=== PATIENT | male | born 1950 | race Caucasian/White ===

== ENCOUNTER 2018-12-03 13:38 | Inpatient (IN) ==
[2018-12-03] MEDS ORDERED: Lidocaine -MPF 2% 2 ML VIAL ONE (13:43)
[2018-12-03] MEDS ORDERED: *HR* Propofol 200 MG/20 ML VIAL IVP ONE (13:43)
[2018-12-03] MEDS ORDERED: *HR* Midazolam HCl 2 MG/2 ML VIAL ONE (13:44)
[2018-12-03] MEDS ORDERED: Tranexamic Acid 1,000 MG/10 ML VIAL ONE (13:44)
[2018-12-03] MEDS ORDERED: *HR* FentaNYL (PF) 100 MCG/2 ML VIAL ONE (13:44)
[2018-12-03] MEDS ORDERED: CeFAZolin Syr 2,000MG/20 ML 2,000 MG/20 ML SYRINGE IVPB ONE (13:51)
[2018-12-03] MEDS ORDERED: Ringers Solution, Lactated 1,000 ML IVC SCH ×2 (14:00→17:53)
[2018-12-03] MEDS ORDERED: *HR* Succinylcholine 200 MG/10 ML VIAL IVP ONE (14:01)
[2018-12-03] MEDS ORDERED: Dexamethasone 4 MG/ML VIAL ONE (14:01)
[2018-12-03] MEDS ORDERED: Ondansetron 4 MG/2 ML VIAL ONE (14:01)
[2018-12-03] MEDS ORDERED: Ethanol\\Acetic Acid\\Na Ace\\Ben 1,000 ML IRRIG.SOLN IR ONE (14:45)
[2018-12-03] MEDS ORDERED: *HR* HYDROmorphone (PF) 1 MG/ML SYRINGE IVP PRN (14:48)
[2018-12-03] MEDS ORDERED: *HR* OxyCODONE Immed Rel 5 MG TABLET PO PRN ×2 (14:48→17:53)
[2018-12-03] MEDS ORDERED: Ondansetron 4 MG/2 ML VIAL IVP ONE (14:48)
[2018-12-03] MEDS ORDERED: *HR* Promethazine 25 MG/ML VIAL IVP PRN (14:48)
[2018-12-03] MEDS ORDERED: ROPIVACAINE/PF/NS 0.25% 1 EACH SYRINGE INTRAART ONE (15:10)
[2018-12-03] MEDS ORDERED: Ropivacaine/PF 0.5% 30 ML VIAL ONE (15:10)
[2018-12-03] MEDS ORDERED: EPHEDrine 50 MG/ML VIAL ONE (15:42)
[2018-12-03] MEDS ORDERED: *HR* PHENYLEPHRINE 1,000 MCG/10 ML SYRINGE IVP ONE (15:54)
[2018-12-03 17:21] LABS: Hemoglobin 14.1 g/dL (12.9-16.9)
[2018-12-03] MEDS ORDERED: MOM Conc 10 ML UD.LIQ PO PRN (17:53)
[2018-12-03] MEDS ORDERED: Temazepam 15 MG CAPSULE PO PRN (17:53)
[2018-12-03] MEDS ORDERED: Dextrose Gel 15 GM/37.5 ML TUBE PO PRN ×2 (17:53)
[2018-12-03] MEDS ORDERED: traMADol 50 MG TABLET PO PRN (17:53)
[2018-12-03] MEDS ORDERED: Sennosides 8.6 MG TABLET PO PRN (17:53)
[2018-12-03] MEDS ORDERED: *HR* OxyCODONE/APAP 5/325 TABLET PO PRN (17:53)
[2018-12-03] MEDS ORDERED: D5% in Water 1,000 ML IVC PRN (17:53)
[2018-12-03] MEDS ORDERED: Naloxone 0.4 MG/ML INJ IVP PRN (17:53)
[2018-12-03] MEDS ORDERED: Ondansetron 4 MG/2 ML VIAL IVP PRN (17:53)
[2018-12-03] MEDS ORDERED: *HR* Dextrose 50 % in Water (Syg) 50 ML SYRINGE IVP PRN (17:53)
[2018-12-03] MEDS ORDERED: *HR* Enoxaparin 30 MG/0.3 ML SYRINGE SQ SCH (18:00)
[2018-12-03] MEDS: Insulin LISPRO 300 UNITS/3 ML VIAL SQ SCH (18:59)
[2018-12-03] MEDS: *HR* Enoxaparin 30 MG/0.3 ML SYRINGE SQ SCH (18:59)
[2018-12-03] MEDS ORDERED: Insulin LISPRO 300 UNITS/3 ML VIAL SQ SCH (21:00)
[2018-12-04 04:55] LABS: Hematocrit 40.1 % (37.5-50.1); Hemoglobin 13.3 g/dL (12.9-16.9)
[2018-12-04] MEDS: *HR* Enoxaparin 30 MG/0.3 ML SYRINGE SQ SCH (04:57)
[2018-12-04 05:46] LABS: BUN/Creatinine Ratio 14 (6-26); Blood Urea Nitrogen 11 mg/dL (8-23); Calcium 8.9 mg/dL (8.6-10.3); Carbon Dioxide 27 mEq/L (23-29); Chloride 99 mEq/L (98-107); Glucose 214 mg/dL (70-105); Osmolality,Calculated 286 (280-300); Potassium 4.8 mEq/L (3.5-5.1); Sodium 135 mEq/L (136-145); eGFR For African Americans > 60 (> 60); eGFR For Non-African Americans > 60 (> 60)
[2018-12-04] MEDS ORDERED: GlipiZIDE 5 MG TABLET PO SCH (08:00)
[2018-12-04] MEDS ORDERED: *HR* Metformin 500 MG TABLET PO SCH (09:00)
[2018-12-04] MEDS ORDERED: Venlafaxine XR (24 HR) 75 MG CAP.ER.24H PO SCH (09:00)
[2018-12-04] MEDS ORDERED: Cholecalciferol (D-3) 1,000 UNIT (25MCG) TABLET PO SCH (09:00)
[2018-12-04] MEDS ORDERED: amLODIPine 5 MG TABLET PO SCH (09:00)
[2018-12-04] MEDS: Insulin LISPRO 300 UNITS/3 ML VIAL SQ SCH ×2 (09:01→12:45)
[2018-12-04 13:13] VITALS: BP 136/81
[2018-12-08] MEDS ORDERED: NON-FORMULARY MEDICATION 1 EACH EACH (Dulaglutide [Trulicity] 0.75 MG) SQ SCH (15:16)
== END 2018-12-04 14:19 | disposition home or self-care (01) | DRG 483 ==
LOC: SAMDAY 13:38 → 3NENU 17:40
PROVIDERS: ADMIT Orthopaedic Surgery; ATTEND Orthopaedic Surgery